=== PATIENT | male | born 1995 | race Caucasian/White ===

== ENCOUNTER 2018-03-16 14:58 | Emergency (ER) | payer BC ==
[~2018-03-16] VITALS: Ht 182.9 cm; Wt 82.4 kg
[2018-03-16 15:02] VITALS: BP 133/82
[2018-03-16] MEDS ORDERED: KETOROLAC 60 MG/2 ML IM ONE (15:30)
[2018-03-16] MEDS ORDERED: METHOCARBAMOL 750 MG TABLET PO ONE (15:30)
[2018-03-16] MEDS ORDERED: OXYcodone/APAP 5/325MG TABLET PO ONE (15:30)
[2018-03-16] MEDS ORDERED: METHOCARBAMOL 750 MG TABLET ONE (15:43)
[2018-03-16] MEDS ORDERED: KETOROLAC 30 MG/1 ML ONE (15:44)
[2018-03-16] MEDS ORDERED: OXYcodone/APAP 5/325MG TABLET ONE (15:44)
== END 2018-03-16 16:44 | disposition home or self-care (01) ==
LOC: ED 16:38
DX: M54.42 Lumbago with sciatica, left side (principal); M51.36 Other intervertebral disc degeneration, lumbar region; M54.16 Radiculopathy, lumbar region
CPT/HCPCS: 72110; 96372; 99284; J1885

== ENCOUNTER 2018-03-17 12:12 | Emergency (ER) | payer BC ==
[~2018-03-17] VITALS: Ht 182.9 cm; Wt 82.0 kg
[2018-03-17] MEDS ORDERED: KETOROLAC 30 MG/1 ML IM ONE (13:30)
[2018-03-17] MEDS ORDERED: DIAZEPAM 5 MG TABLET PO ONE (13:30)
[2018-03-17] MEDS ORDERED: DEXAMETHASONE 4 MG TABLET PO ONE (13:30)
[2018-03-17] MEDS ORDERED: DEXAMETHASONE 4 MG TABLET ONE (13:39)
[2018-03-17] MEDS ORDERED: KETOROLAC 30 MG/1 ML ONE (13:39)
[2018-03-17] MEDS ORDERED: DIAZEPAM 5 MG TABLET ONE (13:39)
[2018-03-17 14:05] VITALS: BP 128/71
== END 2018-03-17 14:06 | disposition home or self-care (01) ==
LOC: ED 12:40
DX: S39.012A Strain of muscle, fascia and tendon of lower back, initial encounter (principal); M51.36 Other intervertebral disc degeneration, lumbar region; F17.210 Nicotine dependence, cigarettes, uncomplicated; W18.39XA Other fall on same level, initial encounter; Y93.01 Activity, walking, marching and hiking; Y92.89 Other specified places as the place of occurrence of the external cause; Y99.8 Other external cause status
CPT/HCPCS: 96372; 99283; J1885

== ENCOUNTER 2018-06-04 13:42 | Emergency (ER) | payer BC ==
[~2018-06-04] VITALS: Ht 182.9 cm; Wt 87.0 kg
[2018-06-04] MEDS ORDERED: HYDROmorphone 2 MG/ML, 1ML IM ONE (14:00)
[2018-06-04] MEDS ORDERED: ONDANSETRON ODT 4 MG PO ONE (14:00)
[2018-06-04] MEDS ORDERED: HYDROmorphone 2 MG/ML, 1ML ONE (14:05)
[2018-06-04] MEDS ORDERED: ONDANSETRON ODT 4 MG ONE (14:05)
[2018-06-04] MEDS ORDERED: LIDOCAINE-MPF 1%, 5ML INFIL ONE (14:30)
[2018-06-04] MEDS ORDERED: DIPH,PERTUSS(ACELL),TET VAC/PF 0.5 ML IM-VACC ONE ×2 (14:30→15:50)
[2018-06-04] MEDS ORDERED: LIDOCAINE-MPF 1%, 5ML ONE (14:50)
[2018-06-04 16:11] VITALS: BP 123/84
== END 2018-06-04 16:14 | disposition home or self-care (01) ==
LOC: ED 16:00
DX: S06.0X9A Concussion with loss of consciousness of unspecified duration, initial encounter (principal); S02.2XXA Fracture of nasal bones, initial encounter for closed fracture; S01.01XA Laceration without foreign body of scalp, initial encounter; S01.312A Laceration without foreign body of left ear, initial encounter; S50.11XA Contusion of right forearm, initial encounter; S80.11XA Contusion of right lower leg, initial encounter; Y08.09XA Assault by strike by other specified type of sport equipment, initial encounter; Y93.89 Activity, other specified; Y92.488 Other paved roadways as the place of occurrence of the external cause; Y99.8 Other external cause status
CPT/HCPCS: 12032; 12051; 70450; 70486; 73090; 73590; 90471; 90715; 96372; 99285; J1170; Q0162

== ENCOUNTER 2018-06-14 08:07 | Emergency (ER) | payer BC ==
[~2018-06-14] VITALS: Ht 182.9 cm; Wt 83.6 kg
[2018-06-14 08:11] VITALS: BP 119/82
== END 2018-06-14 08:53 | disposition home or self-care (01) ==
LOC: ED 08:46
DX: S01.01XD Laceration without foreign body of scalp, subsequent encounter (principal); F17.200 Nicotine dependence, unspecified, uncomplicated
CPT/HCPCS: 99281